=== PATIENT | male | born 1980 | race African-American/Black ===

== ENCOUNTER 2017-02-10 17:00 | Emergency (ER) | payer MEDICAID ==
[~2017-02-10] VITALS: Ht 185.4 cm; Wt 95.3 kg
[~2017-02-10 17:00] MED LIST: AMLO5TAB2 PO; BENZ0.5T6 PO; DIVA250T51 PO; HAL5T PO
[2017-02-10 17:53] LABS: Basophils # (auto) 0 uL; Basophils % (auto) 0.2 % (0.0-2.0); CONDITION Y; Eosinophils # (auto) 0.1 uL; Eosinophils % (auto) 1.2 % (0.0-7.0); Hematocrit 40.6 % (41.0-53.0); Hemoglobin 13.1 g/dL (13.5-17.5); Lymphocytes # (auto) 1.7 uL; Lymphocytes % (auto) 20.2 % (10.0-50.0); Mean Corpuscular Hemoglobin 27.6 pg (28.0-32.0); Mean Corpuscular Hgb Conc. 32.4 g/dL (32.0-36.0); Mean Corpuscular Volume 85.3 fL (80.0-100.0); Mean Platelet Volume 8.8 fL (7.4-10.4); Monocytes # (auto) 0.6 uL; Monocytes % (auto) 7.6 % (0.0-12.0); Neutrophils # (auto) 5.8 uL; Neutrophils % (auto) 70.8 % (37.0-80.0); Platelet Count (auto) 283 10^3/uL (140-450); Red Cell Distribution Width 15.9 % (11.6-16.0); White Blood Cell 8.2 10^3/uL (4.4-10.8)
[2017-02-10 18:03] LABS: Anion Gap 7 (5-15); BUN/Creatinine Ratio 8.3; Blood Urea Nitrogen 8 mg/dL (7-18); Calcium 8.5 mg/dL (8.5-10.1); Carbon Dioxide 27 mmol/L (21-32); Chloride 102 mmol/L (98-107); GFR African American 113 mL/min; GFR Non-African American 93 mL/min; Glucose 81 mg/dL (74-106); Potassium 3.5 mmol/L (3.5-5.1); Sodium 136 mmol/L (136-145)
[2017-02-10 20:15] VITALS: BP 130/89
== END 2017-02-10 22:30 | disposition home or self-care (01) ==
LOC: EDBD 17:00 → ER 17:05
DX: I10 Essential (primary) hypertension (principal); F29 Unspecified psychosis not due to a substance or known physiological condition; F41.9 Anxiety disorder, unspecified; F20.9 Schizophrenia, unspecified; F12.10 Cannabis abuse, uncomplicated; Z79.899 Other long term (current) drug therapy
CPT/HCPCS: 36415; 80048; 80307; 80320; 85025

== ENCOUNTER 2017-03-14 12:51 | Emergency (ER) | payer MEDICAID ==
[~2017-03-14] VITALS: Ht 182.9 cm; Wt 86.2 kg
[2017-03-14] MEDS ORDERED: cloNIDine HCL 0.1 MG TAB PO ONE (15:15)
[2017-03-14 15:48] VITALS: BP 175/104
== END 2017-03-14 16:29 | disposition home or self-care (01) ==
LOC: EDBD 12:51 → ER 12:53
DX: M79.672 Pain in left foot (principal); I10 Essential (primary) hypertension; F12.10 Cannabis abuse, uncomplicated

== ENCOUNTER 2017-04-28 04:57 | Emergency (ER) | payer MEDICAID ==
[~2017-04-28] VITALS: Ht 177.8 cm; Wt 95.7 kg
[2017-04-28] MEDS ORDERED: cloNIDine HCL 0.1 MG TAB PO ONE (05:15)
[2017-04-28 05:16] LABS: Urine RBC None Seen /hpf (0 - 3)
[2017-04-28 05:31] LABS: Urine Bilirubin Negative (Negative); Urine Blood Negative /uL (Negative); Urine Glucose Normal (Normal); Urine Ketone Negative (Negative); Urine Nitrite Negative (Negative); Urine Squamous Epithelial Cell FEW /hpf (<5); Urine Urobilinogen Normal (Negative)
[2017-04-28 05:32] LABS: Urine Color Straw (Yellow)
[2017-04-28 05:34] VITALS: BP 185/112
[2017-04-28 05:41] LABS: Basophils # (auto) 0 uL; Basophils % (auto) 0.3 % (0.0-2.0); Eosinophils # (auto) 0.1 uL; Eosinophils % (auto) 1.6 % (0.0-7.0); Hematocrit 42.8 % (41.0-53.0); Hemoglobin 14.1 g/dL (13.5-17.5); Lymphocytes # (auto) 1.4 uL; Lymphocytes % (auto) 20.6 % (10.0-50.0); Mean Corpuscular Hemoglobin 27.9 pg (28.0-32.0); Mean Corpuscular Volume 84.3 fL (80.0-100.0); Monocytes # (auto) 0.5 uL; Monocytes % (auto) 6.9 % (0.0-12.0); Neutrophils # (auto) 4.9 uL; Neutrophils % (auto) 70.6 % (37.0-80.0); Nucleated Red Blood Cells % 0.1 %; Platelet Count (auto) 231 10^3/uL (140-450); Red Cell Distribution Width 16.2 % (11.8-14.3); White Blood Cell 6.9 10^3/uL (4.4-10.8)
[2017-04-28 05:50] LABS: Albumin 3.9 g/dL (3.4-5.0); Anion Gap 5 (5-15); Aspartate Aminotransferase 15 U/L (15-37); Calcium 8.9 mg/dL (8.5-10.1); Carbon Dioxide 30 mmol/L (21-32); Chloride 103 mmol/L (98-107); GFR African American 145 mL/min; GFR Non-African American 120 mL/min; Glucose 89 mg/dL (74-106); Potassium 3.7 mmol/L (3.5-5.1); Sodium 138 mmol/L (136-145)
[2017-04-28 05:55] LABS: B-Type Natriuretic Peptide 15.07 pg/mL (0-100)
[2017-04-28 05:57] LABS: Alkaline Phosphatase 116 U/L (45-117); BUN/Creatinine Ratio 11.7; Bilirubin, Total 0.3 mg/dL (0.2-1.0); Blood Urea Nitrogen 9 mg/dL (7-18); Total Protein 8.4 g/dL (6.4-8.2)
[2017-04-28 05:58] LABS: Temperature: 21.9 C (20.0-25.0)
== END 2017-04-28 08:26 | disposition home or self-care (01) ==
LOC: ER 05:00
DX: I10 Essential (primary) hypertension (principal); I16.0 Hypertensive urgency; Z91.011 Allergy to milk products
CPT/HCPCS: 36415; 71010; 80053; 80307; 81001; 83880; 84484; 85025; 93005